=== PATIENT | male | born 1960 | race Caucasian/White ===

== ENCOUNTER → 2017-08-27 07:11 | Outpatient (CLI) | payer BC, SELFPAY ==
[2017-08-27 10:45] LABS: Anion Gap 5 (5-15); BUN 20 mg/dL (7-18); BUN/Creat Ratio 22.7 RATIO (10-20); Calcium,Total 9.2 mg/dL (8.5-10.1); Chloride 101 mmol/L (98-107); Creatinine, Serum 0.88 mg/dL (0.70-1.30); EST Glomerular Filtration Rate 95 mL/min (>60); Est Glom Filt Rate - Afr Amer 115 mL/min (>60); Glucose 142 mg/dL (74-106); Sodium Level 136 mmol/L (136-145)
[2017-08-27 13:43] LABS: Hemoglobin A1c 6.5 % (4.2-6.3)
== END ==
PROVIDERS: Family Provider Internal Medicine; PCP Internal Medicine; Visit Provider Internal Medicine
DX: R73.03 Prediabetes (principal)
CPT/HCPCS: 36415; 80048; 83036

== ENCOUNTER → 2017-12-20 08:22 | Outpatient (CLI) | payer BC, SELFPAY ==
--- NOTE | 2017-12-20 08:22 | DT_ITS ---
This patient was seen during an EMR downtime December 16, 2017 - December 23, 2017. This patient may have a combination of paper and electronic documentation or all paper documentation. All documentation is viewable within the e-chart portion of [facility] for each patient visit.
[2017-12-20 14:48] LABS: Hemoglobin A1c 6.8 % (4.2-6.3)
[2017-12-20 14:52] LABS: Cholesterol 147 mg/dL (200); High Density Lipoprotein 38 mg/dL; Triglycerides 56 mg/dL; Very Low Density Lipoprotein 11 mg/dL (5-40)
== END ==
PROVIDERS: Family Provider Internal Medicine; PCP Internal Medicine; Visit Provider Internal Medicine
DX: E11.9 Type 2 diabetes mellitus without complications (principal)
CPT/HCPCS: 36415; 80061; 83036

== ENCOUNTER 2018-02-14 09:13 | Emergency (ER) | payer BC, SELFPAY ==
[2018-02-14 09:14] VITALS: BP 154/99; PULSE 89; RESP 15; TEMP 36.4; O2SAT 98; BMI 32.7
--- NOTE | 2018-02-14 09:52 | ED.VISSUMM ---
- ER Visit Summary Date of Service: 02/14/18 Chief Complaint: [] Constipation no bowel movement for 4 days History of Present Illness: The patient is a 57 M [] hx of spina bifida with tethered cord he has decreased sensation to his lower extremities, he has an umbilical hernia at 6:00 position that is slightly more prominent, he indicates that basically 4 days he has had abdominal distention and decreased to no bowel movements he is passing very little gas is taken laxatives by mouth no improvement His spina bifida is stable, because of this issue he has developed right lower extremity ulcer that is being managed by other physicians that he states is very stable he has that lower extremity wrapped in a dressing he does not wish to have that evaluated or unwrapped indicates that is not causing any of his symptoms Not been exposed anyone that could have made him ill no tainted food, he had prior colonoscopy 1 or 2 years ago was unremarkable he is not prone to constipation he has had no fever no cough indicates the abdominal ventral umbilical hernia that he has had seems more prominent and is slightly more tender, he has had no fever no cough no vomiting Physical Examination: [] Does appear to have some abdominal distention his vital signs are within normal range is in no distress, head neck unremarkable chest sounds clear heart tones are normal the abdomen there is a umbilical hernia at 6:00 that is prominent and slightly tender he has otherwise generalized abdominal distention no rebound guarding organomegaly. Rectal exam shows no stool in the vault no tender areas, he has a dressing to the right lower extremity and he has 2+ edema to that leg that is chronic and unchanged he does not wish to have that evaluated or examined neurologically he is awake and alert moving all 4 Test Results: [] Emergency Department Course and Treatment: [] All the above labs CT The patient's lab studies are all generally unremarkable see those reports, CT abdomen shows nothing acute the umbilical hernia has fat in it no bowel obstruction normal appendix the bowel itself looks unremarkable except per the radiologist the bowel seems to be full of fluid Test with the patient was given a soapsuds enema he had partial results with formed stool and liquidy brown stool he is feeling better we discussed all of the above we discussed inpatient versus outpatient management he does not wish to be admitted he wants to go home of explained to him at this point time he should stay in a bland diet high-fiber food, he will be given GoLYTELY to use for the next few days but he should contact his primary care physicians for further management options, and it attempt to contact and 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 It may contain incorrect words, spelling, and punctuation that were not noted in review of the chart prior to signing ED Disposition - Plan for ED Patient: Chief Complaint: Constipation Referrals: Fred Fonseca MD [Primary Care Provider] -
--- NOTE | 2018-02-14 09:54 | CT_ITS ---
STUDY: CT ABDOMEN AND PELVIS WITHOUT CONTRAST REASON FOR EXAM: Male, 57 years old. Abdominal pain. Abnormal bowel movements for three days. RADIATION DOSAGE (If Supplied By Facility): CTDIvol = ( 21.03 ) mGy, DLP = ( 1066.8 ) mGycm TECHNIQUE: Transaxial images were obtained from the dome of the diaphragm to the symphysis pubis without oral contrast, and without intravenous contrast. Sagittal and coronal images were reconstructed. Individualized dose optimization techniques were used for this CT. COMPARISON: None. FINDINGS: The visualized lung bases are unremarkable. The visualized portions of the heart are within normal limits. Normal liver. Normal gallbladder and extrahepatic biliary system. Normal spleen. Normal pancreas. Normal bilateral adrenal glands. Normal right kidney. Normal left kidney. Normal visualized stomach. There is no evidence for dilated bowel, ascites or pneumoperitoneum. Small bowel has a grossly normal appearance. Fluid is visible through most of the colon suggesting sequela diarrhea. The appendix is visualized and appears normal. Normal abdominal aorta. Normal inferior vena cava. Normal retroperitoneum. Normal urinary bladder. Normal visualized prostate gland. There is a small umbilical hernia containing fat. The patient appears to have had laminectomies of L5. There is mild anterolisthesis at L5-S1. Some heterotopic bone formation at the L5-S1 level. There is deformity of the right iliac wing that may be the result of bone graft harvesting. CT/Abdomen/Pelvis without Cont IMPRESSION: Fluid-filled colon suggesting sequela of diarrhea. This could be the result of acute infectious process. Electronically Signed: Fidelina Edwards MD at 10:59 EDT , Service support ,
--- NOTE | 2018-02-14 09:54 | EKG12_ITS ---
Test Reason : CONSTIPATION Blood Pressure : / mmHG Vent. Rate : 080 BPM Atrial Rate : 080 BPM P-R Int : 142 ms QRS Dur : 070 ms QT Int : 372 ms P-R-T Axes : 032 -07 020 degrees QTc Int : 429 ms Normal sinus rhythm Normal ECG Confirmed by MUNIR CUENCA, SERAFIN ([id number]), video effects editor MARTY MALHOTRA ([id number]) on 02/17/2018 1:24:24 PM Referred By: DEBORAH Confirmed By:SERAFIN AMARAL MD
[2018-02-14] MEDS: 0.9% Normal Saline 1,000 ML 125 ML IV (10:07)
[2018-02-14 10:16] LABS: Absolute Lymphocyte Count 1.47 X10^3/ul (0.83-4.51); Absolute Neutrophil Count 6.5 X10^3/uL (2.0-7.7); Basophil# 0.02 X10^3/uL; Basophil% 0.2 % (0-1); Eosinophil# 0.11 X10^3/uL; Eosinophils% 1.2 % (0-5); Hematocrit 46.6 % (40-54); Hemoglobin 15.8 g/dl (13.0-16.5); Lymphocyte # 1.47 X10^3/ul (4.0); Lymphocyte % 16.5 % (19-41); Mean Corp Hgb Conc 33.9 g/gl (32-36); Mean Corpuscular Hgb 31.4 pg (27.0-32.0); Mean Corpuscular Volume 92.6 fL (80-94); Mean Platelet Vol. 8.9 fl (6.2-12.0); Monocyte# 0.77 X10^3/uL; Monocyte% 8.7 % (0-10); Neutrophil # 6.45 X10^3/uL (2.7-7.7); Neutrophil % 72.6 % (47-70); Platelet Count 294 K/mm3 (150-450); RBC Distribution Width CV 13.3 % (11.6-14.6); RBC Distribution Width SD 43.9 fl (35.1-43.9); Red Blood Count 5.03 M/mm3 (4.6-6.2); White Blood Count 8.9 K/mm3 (4.4-11.0)
[2018-02-14 10:28] LABS: POSITIVE COUNT NO; POSITIVE DIFFERENTIAL NO; POSITIVE MORPHOLOGY NO
[2018-02-14 10:30] LABS: AST(SGOT) 18 U/L (15-37); Alanine Aminotransfer ALT/SGPT 23 U/L (16-61); Albumin, Serum 3.9 g/dL (3.2-5.0); Alkaline Phosphatase 91 U/L (45-117); Anion Gap 6 (5-15); BUN 16 mg/dL (7-18); BUN/Creat Ratio 16.8 RATIO (10-20); Bilirubin, Direct 0.23 mg/dL (0.00-0.30); Calcium,Total 9.2 mg/dL (8.5-10.1); Chloride 104 mmol/L (98-107); Creatinine, Serum 0.95 mg/dL (0.70-1.30); EST Glomerular Filtration Rate 87 mL/min (>60); Est Glom Filt Rate - Afr Amer 105 mL/min (>60); Estimated Creatinine Clearance 89.65 ml/min; Globulin 4.2 g/dL (2.2-4.2); Glucose 133 mg/dL (74-106); Lipase 132 U/L (73-393); Potassium 4.2 mmol/L (3.5-5.1); Protein, Total 8.1 g/dL (6.4-8.2); Sodium Level 137 mmol/L (136-145)
[2018-02-14 11:20] LABS: Bacteria 0 SEEN /hpf (None Seen); Mucous, Urine 0 SEEN /hpf (<or=2+); Red Blood Cells-Urine 0 SEEN /hpf (0-5); Squamous Epithelial Cells - UA 0 SEEN /hpf (0-5); White Blood Cells 0 SEEN /hpf (0-5)
[2018-02-14 11:22] LABS: Color, Urine Yellow (Yellow); Glucose, Dipstick Normal (Normal); Ketone-Dipstick Negative (Negative); Leukocyte Esterase-Dipstick Negative /ul (Negative); Nitrite-Dipstick Negative (Negative); Occult Blood-Urine Negative /ul (Negative); Protein-Dipstick Negative (Negative); Urine Bilirubin Dipstick Negative (Negative); Urine Clarity Clear (Clear); Urine Urobilinogen Normal (Normal)
[2018-02-14 13:02] VITALS: BP 140/90; PULSE 77; RESP 18; O2SAT 96
--- NOTE | 2018-02-14 14:50 | ED.DEP ---
ED Disposition - Plan for ED Patient: Chief Complaint: Constipation Instructions: ED Abdominal Pain Unkn Cause, ED Constipation Referrals: Fred Fonseca MD [Primary Care Provider] - Additional Instructions: These follow-up with your family doctor and also your gastrointestinal doctor, drink 1-2 glasses of GoLYTELY every day for a few days
[2018-02-14 15:15] VITALS: BP 152/96; PULSE 75; PULSE 83; RESP 18; O2SAT 95
[2018-02-14] MEDS: Electrolyte Solution/Peg's 4000 ML 1000 ML PO (15:16)
== END 2018-02-14 15:17 | disposition home or self-care (01) ==
LOC: ED 10:22
PROVIDERS: Emergency Provider Emergency Medicine; Family Provider Internal Medicine; PCP Internal Medicine
DX: K59.00 Constipation, unspecified (principal); K42.9 Umbilical hernia without obstruction or gangrene; Q05.9 Spina bifida, unspecified
CPT/HCPCS: 74176; 80048; 80076; 81001; 83690; 84484; 85025; 93005; 96360; 96361; 99284; J7030; J2405

== ENCOUNTER 2018-02-16 08:32 | Emergency (ER) | payer BC, SELFPAY ==
[2018-02-16 08:33] VITALS: BP 145/100; PULSE 115; RESP 18; TEMP 36.3; O2SAT 95; BMI 32.0
--- NOTE | 2018-02-16 08:58 | ED.VISSUMM ---
- ER Visit Summary Date of Service: 02/16/18 Chief Complaint: Constipation History of Present Illness: The patient is a 57 M presenting with constipation. He has not been able to have a bowel movement for the past week. He was seen in the emergency department 2 days ago for same complaint. He was given a soapsuds enema during that stay and had a small bowel movement. He was sent home with Keven. He states he is still unable to have a bowel movement. He had one episode of vomiting yesterday. He also states he has an umbilical hernia which has been more painful than usual. He states it typically sticks out and he is able to push it back in. He has not been able to push it back in today. He denies fever or other complaints. Physical Examination: Vitals are stable. Patient is afebrile. Alert no acute distress. HEENT exam is unremarkable. Neck is supple. Lungs are clear and equal bilaterally. Heart is regular rate and rhythm. Abdomen is soft diffuse tenderness with no rebound or guarding. Tender umbilical hernia Extremities are unremarkable. Skin is warm and dry. No focal neurologic deficit. Remainder of exam is unremarkable. Emergency Department Course and Treatment: CBC, chemistries unremarkable. Lactic acid is normal. Patient given morphine, Zofran IV. Abdominal series shows no evidence of obstruction. Discussed with Dr. Ly he would like a repeat CT scan. CT abdomen pelvis with IV and oral contrast was obtained and shows fluid-filled right colon and transverse colon without obstruction or constipation. They are unchanged. No suspicious mass or acute abnormality in the abdomen and pelvis. No significant interval changes when compared to 02/14/2018. Dr. Ly reviewed the CT images and recommends enema. He was given a soapsuds enema. He was able to have a bowel movement after enema. He is feeling improved. Advised to follow up with primary care physician. Advised to return to the ED for worsening complaints. Disposition: Discharge home Impression: Constipation This note was generated with [employer] dictation software. It may contain incorrect words, spelling, and punctuation that were not noted in review of the chart prior to signing ED Disposition - Plan for ED Patient: Chief Complaint: Constipation Referrals: Fred Fonseca MD [Primary Care Provider] -
--- NOTE | 2018-02-16 09:22 | RAD_ITS ---
STUDY: X-RAY - ACUTE ABDOMINAL SERIES REASON FOR EXAM: Male, 57 years old. Pain at the umbilical area TECHNIQUE: Single view of the chest. Supine, and upright view(s) of the abdomen were obtained. COMPARISON: CT of the abdomen and pelvis 03/13/2018. FINDINGS: Mild pulmonary hypoinflation. The lungs are clear. Prominent right nipple shadow. Mild cardiomegaly. Normal mediastinum and kwesi. Normal visualized pulmonary arteries. Normal visualized aortic arch and descending thoracic aorta. There is a non-specific bowel gas pattern. The soft tissue structures of the abdomen and pelvis are unremarkable. Normal visualized osseous structures. RAD/Acute Abdomen Inc Chest IMPRESSION: 1. No acute cardiopulmonary pathology. 2. No acute abnormality in the abdomen and pelvis. Electronically Signed: Sadiq Wright MD at 10:01 EDT , Service support ,
[2018-02-16 10:30] LABS: Absolute Lymphocyte Count 1.65 X10^3/ul (0.83-4.51); Absolute Neutrophil Count 6.8 X10^3/uL (2.0-7.7); Basophil# 0.01 X10^3/uL; Basophil% 0.1 % (0-1); Eosinophil# 0.16 X10^3/uL; Eosinophils% 1.7 % (0-5); Hematocrit 48.1 % (40-54); Hemoglobin 16.1 g/dl (13.0-16.5); Lymphocyte # 1.65 X10^3/ul (4.0); Lymphocyte % 17.3 % (19-41); Mean Corp Hgb Conc 33.5 g/gl (32-36); Mean Corpuscular Volume 92.5 fL (80-94); Mean Platelet Vol. 8.9 fl (6.2-12.0); Monocyte# 0.92 X10^3/uL; Monocyte% 9.6 % (0-10); Neutrophil # 6.77 X10^3/uL (2.7-7.7); Neutrophil % 70.9 % (47-70); Platelet Count 276 K/mm3 (150-450); RBC Distribution Width CV 13.3 % (11.6-14.6); RBC Distribution Width SD 44.6 fl (35.1-43.9); White Blood Count 9.6 K/mm3 (4.4-11.0)
[2018-02-16 10:31] LABS: POSITIVE COUNT NO; POSITIVE DIFFERENTIAL NO; POSITIVE MORPHOLOGY NO
[2018-02-16 10:42] LABS: Anion Gap 7 (5-15); BUN 16 mg/dL (7-18); BUN/Creat Ratio 16.5 RATIO (10-20); Calcium,Total 9.3 mg/dL (8.5-10.1); Chloride 103 mmol/L (98-107); Creatinine, Serum 0.97 mg/dL (0.70-1.30); EST Glomerular Filtration Rate 85 mL/min (>60); Est Glom Filt Rate - Afr Amer 103 mL/min (>60); Glucose 113 mg/dL (74-106); Potassium 4.2 mmol/L (3.5-5.1); Sodium Level 140 mmol/L (136-145)
[2018-02-16] MEDS: Morphine 4 MG/ML Syringe IV (10:46)
[2018-02-16] MEDS: Ondansetron 4 MG/2 ML Vial IV (10:46)
[2018-02-16 10:59] LABS: Lactic Acid 1.3 mmol/L (0.4-2.0)
--- NOTE | 2018-02-16 11:16 | CT_ITS ---
STUDY: CT ABDOMEN AND PELVIS WITH CONTRAST REASON FOR EXAM: Male, 57 years old. Constipation x1 week. History of hypertension and diabetes. RADIATION DOSAGE (If Supplied By Facility): CTDIvol = ( 37.20 ) mGy, DLP = ( 98877.03 ) mGycm TECHNIQUE: Transaxial images were obtained from the dome of the diaphragm to the symphysis pubis with oral contrast. 100mL ml of Isovue 300 intravenous (IV) contrast was administered. Sagittal and coronal images were reconstructed. Individualized dose optimization techniques were used for this CT. COMPARISON: 02/14/2018. FINDINGS: The visualized lung bases are unremarkable. The visualized portions of the heart are within normal limits. Normal liver. Normal gallbladder and extrahepatic biliary system. Normal spleen. Normal pancreas. Normal bilateral adrenal glands. Normal right kidney. Normal left kidney. Normal visualized stomach. Normal small intestine. Fluid filled the ascending colon and transverse colon. The appendix is visualized and appears normal. Normal abdominal aorta. Normal inferior vena cava. Normal retroperitoneum. Normal urinary bladder. Midline umbilical hernia containing only adipose tissue. Postsurgical absence of the spinous processes and lamina of L4 and L5. Capacious central canal. Pronounced L5-S1 disc space height narrowing and grade 1 anterolisthesis of L5 on S1 are unchanged. No acute osseous abnormality. CT/Abdomen/Pelvis WITH Contrast IMPRESSION: Fluid-filled right colon and transverse colon without obstruction or constipation. They are unchanged. No suspicious mass or acute abnormality in the abdomen and pelvis. No significant interval changes when compared to 02/14/2018. Electronically Signed: Sadiq Wright MD at 14:40 EDT , Service support ,
[2018-02-16 11:23] VITALS: BP 129/85; PULSE 80; RESP 16; O2SAT 97
[2018-02-16 13:46] VITALS: BP 140/104; PULSE 91; RESP 18; O2SAT 94
[2018-02-16 15:05] VITALS: BP 142/93; PULSE 61; RESP 17; O2SAT 97
--- NOTE | 2018-02-16 17:21 | ED.DEP ---
ED Disposition - Plan for ED Patient: Chief Complaint: Constipation Instructions: ED Constipation Prescriptions: Na Phos,M-B/Na Phos,Di-Ba [Fleet Enema] 1 bottle RECTAL DAILY 3 Days #3 enema Referrals: Fred Fonseca MD [Primary Care Provider] - Devin Ly MD [STAFF PHYSICIAN] - Donato Navarro MD [NON-STAFF] -
[2018-02-16 17:23] VITALS: BP 136/100; PULSE 94; RESP 18; O2SAT 99
[2018-02-16] MEDS: Magnesium Citrate 300 ML PO (17:29)
== END 2018-02-16 17:53 | disposition home or self-care (01) ==
PROVIDERS: Emergency Provider Emergency Medicine; Family Provider Internal Medicine; PCP Internal Medicine
DX: K59.00 Constipation, unspecified (principal); I10 Essential (primary) hypertension; E78.00 Pure hypercholesterolemia, unspecified; E11.9 Type 2 diabetes mellitus without complications; Q05.9 Spina bifida, unspecified; Z79.84 Long term (current) use of oral hypoglycemic drugs; Z79.899 Other long term (current) drug therapy
CPT/HCPCS: 74022; 74177; 80048; 83605; 85025; 96374; 96375; 99285; J7030; Q9967; A4216; J2405

== ENCOUNTER → 2018-03-21 09:40 | Outpatient (CLI) | payer BC, SELFPAY ==
--- NOTE | 2018-03-21 | IMM_PTH ---
PATIENT: MARTHA BARRAZA LOC: [facility] U#:[id number] AGE/SX: 64/M ROOM: RE03/21/[address]: Dr. Fred Fonseca MD : 1960 BED: DIS: SPEC #: [id number] RECD: 03/25/18 11:03 STATUS: KULDIP REQ #: [id number] LOW: 03/21/18 00:[address]: Donato Navarro DEPT: IMMUNOHISTOCHEMISTRY RECD BY: Rissa Sharp ENTERED: 03/25/18 11:03 SP TYPE: IMMUNO OTHR DR: Dr. Fred Fonseca MD Tissues: B - Stomach, NOS Procedures: H Pylori (initial) Comments: @ Ordering doctor for H.PYLORI edited from to @ by JAGDEEP at 03/25/18 110 @ Submitting doctor edited from to @ by MONICAOD at 03/25/18 1108 PHYSICIAN & [address] [id number] SPECIMEN INFORMATION: Tissue Source: B - Gastric antrum body Clinical Info: Screening Specimen Number: [id number] CPT code: 46709 METHODOLOGY: Deparaffinized sections of prefer/formalin-fixed tissue or PAP/DQ stained slides are incubated with monoclonal/polyclonal antibodies/oligonucleotide probes. Localization is made via biotin free immunoperoxidase method. Appropriate controls are performed and reacted as expected. Results on target cell population are indicated in the following table: RESULTS: ANTIBODY / CLONE RESULT Block B H Pylori (polyclonal) negative These tests were developed and their performance characteristics determined by [facility]. They may not have been cleared or approved by the U.S. Food and Drug Administration. The FDA has determined that such clearance or approval is not necessary. INTERPRETATION: B. Gastric antrum body, biopsy: Negative for Helicobacter pylori organisms. SJ:bran 03/26/18
--- NOTE | 2018-03-21 11:25 | EGD_PTH ---
PATIENT: MARTHA BARRAZA LOC: [facility] U#:[id number] AGE/SX: 64/M ROOM: RE03/21/[address]: Dr. Fred Fonseca MD : 1960 BED: DIS: SPEC #: [id number] RECD: 03/21/18 15:48 STATUS: KULDIP AVA #: [id number] LOW: 03/21/18 11:[address]: Donato Navarro DEPT: SURGICAL PATHOLOGY RECD BY: Heidy Alcantara ENTERED: 03/24/18 08:57 SP TYPE: EGD BIOPSY OTHR DR: Dr. Fred Fonseca MD [facility] Tissues: A - Duodenum, NOS B - Gastric mucous membrane Procedures: Surgery Specimen Level IV Comments: @ Ordering doctor for SUIV edited from to @ by MACIEL at 03/24/18899 @ Submitting doctor edited from to @ by MACIEL at 03/24/18899 HEADER OPERATION: EGD with biopsy PRE-OP DIAGNOSIS: Screening TISSUE SUBMITTED: A - Duodenum biopsy, rule out celiac, B - Gastric antrum body, rule out gastritis MICROSCOPIC DIAGNOSIS A. Duodenum, biopsy: Fragments of duodenal mucosa with mild nonspecific chronic inflammation. See comment. B. Gastric antrum body, biopsy: Mild gastritis. SJ:bran 03/25/18 COMMENT A. Changes consistent with celiac disease are not seen. B. The results of immunohistochemistry for Helicobacter pylori will be reported separately ([id number]). MICROSCOPIC DESCRIPTION Slides are reviewed. B. The specimen shows fragments of gastric mucosa with chronic inflammatory cell infiltrates in the lamina propria consisting of lymphocytes and plasma cells, consistent with mild chronic gastritis. GROSS DESCRIPTION A - Received in fixative is one container labeled with the patient's name and designated duodenum. The specimen consists of multiple irregular fragments of light cade soft tissue that in aggregate measure 0.4 x 0.4 x 0.1 cm. The specimen is totally submitted in one cassette. B - Received in fixative is one container labeled with the patient's name and designated gastric antrum. The specimen consists of multiple irregular fragments of light cade soft tissue that in aggregate measure 1 x 0.5 x 0.1 cm. The specimen is totally submitted in one cassette. / SJ:rg 03/24/18 TC:3 CPT: 98510 x2
[2018-03-21 12:25] LABS: Absolute Neutrophil Count 4.8 X10^3/uL (2.0-7.7); Basophil# 0.02 X10^3/uL; Basophil% 0.3 % (0-1); Eosinophil# 0.26 X10^3/uL; Eosinophils% 3.4 % (0-5); Hemoglobin 13.7 g/dl (13.0-16.5); Lymphocyte % 24.5 % (19-41); Mean Corp Hgb Conc 31.9 g/gl (32-36); Mean Corpuscular Hgb 29.4 pg (27.0-32.0); Mean Corpuscular Volume 92.3 fL (80-94); Mean Platelet Vol. 9.6 fl (6.2-12.0); Monocyte# 0.67 X10^3/uL; Monocyte% 8.6 % (0-10); Neutrophil # 4.83 X10^3/uL (2.7-7.7); Neutrophil % 62.3 % (47-70); Platelet Count 339 K/mm3 (150-450); RBC Distribution Width CV 12.6 % (11.6-14.6); RBC Distribution Width SD 42.4 fl (35.1-43.9); Red Blood Count 4.66 M/mm3 (4.6-6.2); White Blood Count 7.8 K/mm3 (4.4-11.0)
[2018-03-21 12:28] LABS: POSITIVE COUNT NO; POSITIVE DIFFERENTIAL NO; POSITIVE MORPHOLOGY NO
[2018-03-21 12:38] LABS: ALB/GLOB Ratio 0.8 RATIO (0.9-2.4); AST(SGOT) 17 U/L (15-37); Alanine Aminotransfer ALT/SGPT 21 U/L (16-61); Albumin, Serum 3.2 g/dL (3.2-5.0); Alkaline Phosphatase 76 U/L (45-117); Anion Gap 9 (5-15); BUN 14 mg/dL (7-18); BUN/Creat Ratio 16.6 RATIO (10-20); Chloride 106 mmol/L (98-107); Creatinine, Serum 0.84 mg/dL (0.70-1.30); EST Glomerular Filtration Rate 100 mL/min (>60); Est Glom Filt Rate - Afr Amer 121 mL/min (>60); Globulin 4.1 g/dL (2.2-4.2); Glucose 109 mg/dL (74-106); Protein, Total 7.3 g/dL (6.4-8.2); Sodium Level 140 mmol/L (136-145)
[2018-03-21 12:42] LABS: Hemoglobin A1c 6.1 % (4.2-6.3)
== END ==
PROVIDERS: Family Provider Internal Medicine; PCP Internal Medicine; Visit Provider Internal Medicine
DX: E11.9 Type 2 diabetes mellitus without complications (principal); E78.5 Hyperlipidemia, unspecified
CPT/HCPCS: 36415; 80053; 83036; 85025; 88305; 88342

== ENCOUNTER → 2018-03-24 09:24 | Outpatient (CLI) | payer BC, SELFPAY ==
[2018-03-24 10:55] LABS: Erythrocyte Sedimentation Rate 23 mm/hr (0-20)
== END ==
PROVIDERS: Family Provider Internal Medicine; PCP Internal Medicine; Visit Provider Internal Medicine
DX: R53.81 Other malaise (principal); R53.83 Other fatigue
CPT/HCPCS: 36415; 85652

== ENCOUNTER → 2018-03-27 10:57 | Outpatient (CLI) | payer BC, SELFPAY ==
--- NOTE | 2018-03-27 10:59 | NM_ITS ---
CLINICAL: 57-year-old male with reported history of abdominal pain. SEMI-SOLID PHASE 99m Tc SULFUR COLLOID GASTRIC EMPTYING STUDY COMPARISON: CT of the abdomen-pelvis report 02/16/2018 FINDINGS: The patient was administered 1.1 mCi of 99m Tc sulfur colloid mixed with oatmeal and consumed per os. Image acquisitions in the anterior-posterior projections for a total of 60 minutes. There is prompt visualization of the stomach. There is no gastroesophageal reflux identified. The T1/2 linear fit was calculated to be 30.30 minutes, (Normal: 12-56 minutes). NM/Gastric Emptying Study IMPRESSION: 1. NORMAL 99m Tc sulfur colloid semi-solid phase (oatmeal) gastric emptying imaging examination. A. There is normal and preserved semi-solid phase gastric emptying compared to normal controls. (Juan et al, J Nucl Med Tech 38: 186, 2010). Electronically Signed: Cesario Toussaint DO at 23:10 EDT Tel , Service support ,
== END ==
PROVIDERS: Family Provider Internal Medicine; PCP Internal Medicine; Visit Provider Internal Medicine
DX: K31.84 Gastroparesis (principal); E11.9 Type 2 diabetes mellitus without complications
CPT/HCPCS: 78264; A9541

== ENCOUNTER 2020-09-27 17:07 | Outpatient (RCR) | payer OTHER, SELFPAY ==
[2018-03-24 08:02] VITALS: BMI 32.1
[2020-09-27] MEDS: COVID-19 VACC, MRNA(PFIZER)/PF 30 MCG/0.3 ML SYRINGE IM (17:35)
[2020-10-18] MEDS: COVID-19 VACC, MRNA(PFIZER)/PF 30 MCG/0.3 ML SYRINGE IM (17:21)
== END 2020-09-27 23:59 ==
LOC: IMMUN 17:07
PROVIDERS: PCP Family Medicine; Referring Provider Family Medicine; Visit Provider Family Medicine
DX: Z23 Encounter for immunization (principal)
CPT/HCPCS: 0001A; 0002A; 91300

== ENCOUNTER → 2021-10-31 | Outpatient (CLI) | payer OTHER, SELFPAY ==
[2021-10-31 10:52] LABS: Mucous, Urine 0 SEEN /hpf (<or=2+)
[2021-10-31 10:55] LABS: Color, Urine Yellow (Yellow); Glucose, Dipstick 1000 mg/dl (Normal); Ketone-Dipstick Negative (Negative); Leukocyte Esterase-Dipstick 500 /ul (Negative); Nitrite-Dipstick Negative (Negative); Occult Blood-Urine Negative /ul (Negative); Protein-Dipstick Negative (Negative); Urine Bilirubin Dipstick Negative (Negative); Urine Clarity Clear (Clear); Urine Urobilinogen Normal (Normal)
[2021-10-31 11:01] LABS: Bacteria RARE /hpf (None Seen); Red Blood Cells-Urine 0-5 SEEN /hpf (0-5); Squamous Epithelial Cells - UA 0-5 SEEN /hpf (0-5); White Blood Cells 10-25 SEEN /hpf (0-5)
== END | disposition home or self-care (01) ==
PROVIDERS: PCP Family Medicine; Visit Provider Physician Assistant Surgical
DX: R32 Unspecified urinary incontinence (principal); R29.818 Other symptoms and signs involving the nervous system; R50.9 Fever, unspecified
CPT/HCPCS: 81001; 87086; 87088

== ENCOUNTER → 2022-04-30 | Outpatient (CLI) | payer OTHER, SELFPAY ==
[2022-04-30 09:36] LABS: Anion Gap 6 (5-15); BUN 17 mg/dL (7-18); BUN/Creat Ratio 13.3 RATIO (10-20); Calcium,Total 9.7 mg/dL (8.5-10.1); Chloride 103 mmol/L (98-107); Creatinine, Serum 1.28 mg/dL (0.70-1.30); EST Glomerular Filtration Rate 61 mL/min (>60); Est Glom Filt Rate - Afr Amer 74 mL/min (>60); Glucose 182 mg/dL (74-106); PSA,Total- Diagnostic 8.45 ng/mL (0.0-4.0); Potassium 4.7 mmol/L (3.5-5.1); Sodium Level 137 mmol/L (136-145)
== END | disposition home or self-care (01) ==
PROVIDERS: PCP Family Medicine; Referring Provider Urology; Visit Provider Urology
DX: R33.8 Other retention of urine (principal)
CPT/HCPCS: 36415; 80048; 84153